=== PATIENT | male | born 1965 | race Two or more races ===

== ENCOUNTER → 2017-12-15 | Outpatient (CLI) | payer BC ==
--- NOTE | 2017-12-15 16:29 | RADIOLOGY REPORT (SQ) ---
EXAM DESCRIPTION: C SP 4 OR 5 VIEWS COMPLETED DATE/TIME: 12/15/2017 4:21 pm REASON FOR STUDY: PARESTHESIA OF SKIN R20.2 PARESTHESIA OF SKIN COMPARISON: None. NUMBER OF VIEWS: Five views. TECHNIQUE: AP, lateral, obliques and odontoid radiographic images acquired of the cervical spine. LIMITATIONS: None. FINDINGS: MINERALIZATION: Normal. ALIGNMENT: Anatomic. VERTEBRAE: Vertebral bodies of normal height. DISCS: No significant osteophytes or sclerosis. Disc height maintained. FORAMINA: No osteophytes or foraminal narrowing. LATERAL AND POSTERIOR ELEMENTS: Facets, lateral masses and spinous processes without significant find ings. HARDWARE: Anterior hardware at C5-C6 and C6-C7. SOFT TISSUES: No masses or calcifications. Lung apices clear. OTHER: No other significant finding. IMPRESSION: SURGICAL CHANGES WITH HARDWARE. OTHERWISE NO SIGNIFICANT RADIOGRAPHIC FINDING IN THE CE RVICAL SPINE. TECHNICAL DOCUMENTATION: JOB ID: [id number] [employer]- All Rights Reserved Reading location - IP/workstation name: [email or web address]
== END ==
LOC: OD 15:55
PROVIDERS: ATTEND Physician Assistant
DX: R20.2 Paresthesia of skin (principal)
CPT/HCPCS: 72050

== ENCOUNTER → 2017-12-19 | Outpatient (CLI) | payer BC ==
--- NOTE | 2017-12-19 10:46 | RADIOLOGY REPORT (SQ) ---
EXAM DESCRIPTION: CT HEAD WITHOUT COMPLETED DATE/TIME: 12/19/2017 7:33 am REASON FOR STUDY: PARESTHESIA OF SKIN (R20.2) R20.2 PARESTHESIA OF SKIN COMPARISON: None. TECHNIQUE: Axial images acquired through the brain without intravenous contrast. Images reviewed wi th bone, brain and subdural windows. Additional sagittal and coronal reconstructions were generated. Images stored on PACS. All CT scanners at this facility use dose modulation, iterative reconstruction, and/or weight based d osing when appropriate to reduce radiation dose to as low as reasonably achievable (ALARA). [facility]: Dose Right [facility]: CareDose [facility]: Dose Right [facility]: Teradose 4D [facility]: [employer] RADIATION DOSE: CT Rad equipment meets quality standard of care and radiation dose reduction techniq ues were employed. CTDIvol: 48.6 mGy. DLP: 904 mGy-cm. mGy. LIMITATIONS: None. FINDINGS: VENTRICLES: Normal size and contour. CEREBRUM: No masses. No hemorrhage. No midline shift. No evidence for acute infarction. Normal gra y/white matter differentiation. No areas of low density in the white matter. CEREBELLUM: No masses. No hemorrhage. No alteration of density. No evidence for acute infarction. EXTRAAXIAL SPACES: No fluid collections. No masses. ORBITS AND GLOBE: No intra- or extraconal masses. Normal contour of globe without masses. CALVARIUM: No fracture. PARANASAL SINUSES: No fluid or mucosal thickening. SOFT TISSUES: No mass or hematoma. OTHER: No other significant finding. IMPRESSION: NORMAL BRAIN CT WITHOUT CONTRAST. EVIDENCE OF ACUTE STROKE: NO. COMMENT: Quality ID # [id number]: Final reports with documentation of one or more dose reduction techniques (e.g., Automated exposure control, adjustment of the mA and/or kV according to patient size, use of iterative reconstruction technique) TECHNICAL DOCUMENTATION: JOB ID: [id number] [employer]- All Rights Reserved Reading location - IP/workstation name: [facility]
== END ==
LOC: RAD 07:19
PROVIDERS: ATTEND Physician Assistant
DX: R20.2 Paresthesia of skin (principal)
CPT/HCPCS: 70450

== ENCOUNTER → 2018-10-23 | Outpatient (CLI) | payer BC ==
--- NOTE | 2018-10-23 16:08 | RADIOLOGY REPORT (SQ) ---
EXAM DESCRIPTION: U/S SCROTUM W/O DOPPLER COMPLETED DATE/TIME: 10/23/2018 3:06 pm REASON FOR STUDY: N50.89 OTHER SPECIFIED DISORDERS OF THE MALE GENITAL ORGANS N50.89 OTHER SPECIFIE D DISORDERS OF THE MALE GENITAL ORGANS COMPARISON: None. TECHNIQUE: Static and realtime epps scale imaging of the scrotum and testes. Selected color Doppler and spectral images recorded to document blood flow. LIMITATIONS: None. FINDINGS: RIGHT: TESTICLE: Normal size, 4.8 x 3.5 x 3 cm in size. Normal echotexture. Normal blood flow. No mass. EPIDIDYMIS: 6 mm cyst at the right epididymal head. HYDROCELE OR VARICOCELE: 7 cm cyst in the right hemiscrotum could represent a large epididymal head cyst. HERNIA OR EXTRA-TESTICULAR MASS: No. OTHER: No other significant finding. LEFT: TESTICLE: Normal size, 4.9 x 3.2 x 2.4 cm. Normal echotexture. Normal blood flow. No mass. EPIDIDYMIS: 6 cm cyst in the left hemiscrotum, could represent a large epididymal head cyst. HYDROCELE OR VARICOCELE: Small left varicocele HERNIA OR EXTRA-TESTICULAR MASS: No. OTHER: No other significant finding. IMPRESSION: No ultrasound evidence of testicular torsion or primary testicular mass. 7 cm cyst in the right hemiscrotum, 6 cm cyst in the left hemiscrotum most likely representing epidid ymal or spermatoceles. TECHNICAL DOCUMENTATION: JOB ID: [id number] [employer]- All Rights Reserved Reading location - IP/workstation name: [email or web address]
== END ==
LOC: RAD 14:00
PROVIDERS: ATTEND Physician Assistant
DX: N50.3 Cyst of epididymis (principal); R35.0 Frequency of micturition
CPT/HCPCS: 76870

== ENCOUNTER 2018-11-07 09:01 | Inpatient (IN) | payer BC ==
--- NOTE | 2018-11-07 09:28 | ER Document Report ---
ED Medical Screen (RME) - General Chief Complaint: Blurred Vision Stated Complaint: DRY MOUTH, LIGHTHEADED, VISION BLURRED Time Seen by Provider: 11/07/18 09:14 Primary Care Provider: TAMERA LUNA PA [Primary Care Provider] - Follow up as needed TRAVEL OUTSIDE OF THE [place] IN LAST 30 DAYS: No - HPI Notes: 11/07/18 09:26 Patient presented to the emergency room complaining of headache and nosebleed after snorting cocaine last night. While I was interviewing him in the emergency he suddenly became unresponsive and started having seizures. Patient complained of shortness of breath but denies chest pain. He also denies any history of trauma or injury. Physical exam does not show an active nose bleeding. Chest is clear to auscultation bilaterally abdomen is soft nontender to palpation. There are no physical signs of injury. - Related Data Allergies/Adverse Reactions: No Known Allergies Allergy (Verified 11/07/18 09:02) Past Medical History - Social History Frequency of alcohol use: Occasional Drug Abuse: Cocaine - Past Medical History Cardiac Medical History: Reports: Hx Hypertension Endocrine Medical History: Reports: Hx Diabetes Mellitus Type 2 - PRE Renal/ Medical History: Denies: Hx Peritoneal Dialysis Physical Exam - Vital signs Vitals: Temp Pulse Resp BP Pulse Ox 97.9 F 112 H 16 147/94 H 100 11/07/18 09:06 11/07/18 09:06 11/07/18 09:06 11/07/18 09:06 11/07/18 09:06 Course - Vital Signs Vital signs: Temp Pulse Resp BP Pulse Ox 97.9 F 112 H 16 147/94 H 100 11/07/18 09:06 11/07/18 09:06 11/07/18 09:06 11/07/18 09:06 11/07/18 09:06 Doctor's Discharge - Discharge Referrals: TAMERA LUNA PA [Primary Care Provider] - Follow up as needed
[2018-11-07] MEDS ORDERED: NORMAL SALINE 1000 ML 1,000 ML IV ONE ×2 (09:41→11:50)
--- NOTE | 2018-11-07 09:47 | RADIOLOGY REPORT (SQ) ---
EXAM DESCRIPTION: CHEST SINGLE VIEW COMPLETED DATE/TIME: 11/07/2018 9:34 am REASON FOR STUDY: SOB COMPARISON: 05/01/2013 EXAM PARAMETERS: NUMBER OF VIEWS: One view. TECHNIQUE: Single frontal radiographic view of the chest acquired. RADIATION DOSE: NA LIMITATIONS: None. FINDINGS: LUNGS AND PLEURA: No opacities, masses or pneumothorax. No pleural effusion. MEDIASTINUM AND HILAR STRUCTURES: No masses. Contour normal. HEART AND VASCULAR STRUCTURES: Heart normal in size. Normal vasculature. BONES: No acute findings. HARDWARE: None in the chest. OTHER: No other significant finding. IMPRESSION: No acute abnormality of the lungs. No focal airspace opacity. TECHNICAL DOCUMENTATION: JOB ID: [id number] [employer]- All Rights Reserved Reading location - IP/workstation name: [email or web address]
--- NOTE | 2018-11-07 09:50 | RADIOLOGY REPORT (SQ) ---
EXAM DESCRIPTION: CT HEAD WITHOUT COMPLETED DATE/TIME: 11/07/2018 9:39 am REASON FOR STUDY: Headache COMPARISON: 12/19/2017 TECHNIQUE: Axial images acquired through the brain without intravenous contrast. Images reviewed wi th bone, brain and subdural windows. Additional sagittal and coronal reconstructions were generated. Images stored on PACS. All CT scanners at this facility use dose modulation, iterative reconstruction, and/or weight based d osing when appropriate to reduce radiation dose to as low as reasonably achievable (ALARA). [facility]: Dose Right [facility]: CareDose [facility]: Dose Right [facility]: Teradose 4D [facility]: [employer] RADIATION DOSE: CT Rad equipment meets quality standard of care and radiation dose reduction techniq ues were employed. CTDIvol: 53.2 mGy. DLP: 1044 mGy-cm. mGy. LIMITATIONS: None. FINDINGS: VENTRICLES: Normal size and contour. CEREBRUM: No masses. No hemorrhage. No midline shift. No evidence for acute infarction. Normal gra y/white matter differentiation. No areas of low density in the white matter. CEREBELLUM: No masses. No hemorrhage. No alteration of density. No evidence for acute infarction. EXTRAAXIAL SPACES: No fluid collections. No masses. ORBITS AND GLOBE: No intra- or extraconal masses. Normal contour of globe without masses. CALVARIUM: No fracture. PARANASAL SINUSES: No fluid or mucosal thickening. SOFT TISSUES: No mass or hematoma. OTHER: No other significant finding. IMPRESSION: No acute intracranial pathology. EVIDENCE OF ACUTE STROKE: NO. COMMENT: Quality ID # [id number]: Final reports with documentation of one or more dose reduction techniques (e.g., Automated exposure control, adjustment of the mA and/or kV according to patient size, use of iterative reconstruction technique) TECHNICAL DOCUMENTATION: JOB ID: [id number] [employer]- All Rights Reserved Reading location - IP/workstation name: [email or web address]
[2018-11-07 10:31] LABS: ABSOLUTE EOSINOPHILS # (AUTO) 0.2 10^3/uL (0.0-0.6); ABSOLUTE LYMPHOCYTES (AUTO) 2.2 10^3/uL (0.5-4.7); ABSOLUTE MONOCYTES (AUTO) 1.1 10^3/uL (0.1-1.4); BASOPHILS % (AUTO) 0.3 % (0-2); EOSINOPHILS % (AUTO) 1.6 % (0-6); HEMATOCRIT 47.3 % (37.9-51.0); HEMOGLOBIN 16.5 g/dL (13.5-17.0); LYMPHOCYTES % (AUTO) 14.8 % (13-45); MEAN CORPUSCULAR HEMOGLOBIN 29.5 pg (27.0-33.4); MEAN CORPUSCULAR HGB CONC 34.8 g/dL (32.0-36.0); MEAN CORPUSCULAR VOLUME 85 fl (80-97); MONOCYTES % (AUTO) 7.8 % (3-13); PLATELET COUNT 292 10^3/uL (150-450); RED BLOOD COUNT 5.58 10^6/uL (4.35-5.55); RED CELL DISTRIBUTION WIDTH 12.7 % (11.5-14.0); SEGMENTED NEUTROPHILS % (AUTO) 75.5 % (42-78); TOTAL CELLS COUNTED % (AUTO) 100 %; WHITE BLOOD COUNT 14.6 10^3/uL (4.0-10.5)
[2018-11-07 10:36] LABS: INTERNATIONAL RATION (INR) 1.09; PROTHROMBIN TIME 14.7 SEC (11.4-15.4)
[2018-11-07 10:54] LABS: ALANINE AMINOTRANSFERASE 147 U/L (21-72); ALBUMIN 5.1 g/dL (3.5-5.0); ALKALINE PHOSPHATASE 98 U/L (38-126); ANION GAP 14 (5-19); ASPARTATE AMINO TRANSFERASE 201 U/L (17-59); BILIRUBIN,DIRECT 0.7 mg/dL (0.0-0.4); BILIRUBIN,TOTAL 1.7 mg/dL (0.2-1.3); BLOOD UREA NITROGEN 24 mg/dL (7-20); CALCIUM 10.7 mg/dL (8.4-10.2); CARBON DIOXIDE 26 mmol/L (22-30); CHLORIDE 102 mmol/L (98-107); GLUCOSE 147 mg/dL (75-110); POTASSIUM 4.1 mmol/L (3.6-5.0); SODIUM 141.6 mmol/L (137-145); TOTAL PROTEIN 8.2 g/dL (6.3-8.2)
[2018-11-07 11:06] LABS: TROPONIN I < 0.012 ng/mL
[2018-11-07 11:15] LABS: CREATINE KINASE 11523 U/L (55-170)
--- NOTE | 2018-11-07 11:55 | ER Document Report ---
ED General - General Chief Complaint: Blurred Vision Stated Complaint: DRY MOUTH, LIGHTHEADED, VISION BLURRED Time Seen by Provider: 11/07/18 09:14 TRAVEL OUTSIDE OF THE [place] IN LAST 30 DAYS: No - HPI Patient complains to provider of: Dry mouth lightheadedness blurry vision Notes: Patient coming in for the above-stated symptoms. Patient also states approximate 2 days prior to arrival did use 2 8 balls an apparent suicide attempt. Patient denies any illicit drug abuse denies any history of suicide attempt in the past. Patient otherwise resting company upon my evaluation. Please see the triage note. Denies fevers chills nausea vomiting diarrhea at this time. Denies any chest pain - Related Data Allergies/Adverse Reactions: No Known Allergies Allergy (Verified 11/07/18 09:02) Past Medical History - Social History Smoking Status: Never Smoker Frequency of alcohol use: Occasional Drug Abuse: Cocaine Family History: Reviewed & Not Pertinent Patient has suicidal ideation: No Patient has homicidal ideation: No - Past Medical History Cardiac Medical History: Reports: Hx Hypertension Endocrine Medical History: Reports: Hx Diabetes Mellitus Type 2 - PRE Renal/ Medical History: Denies: Hx Peritoneal Dialysis Review of Systems - Review of Systems Constitutional: No symptoms reported EENT: No symptoms reported Cardiovascular: No symptoms reported Respiratory: No symptoms reported Gastrointestinal: No symptoms reported Genitourinary: No symptoms reported Male Genitourinary: No symptoms reported Musculoskeletal: No symptoms reported Skin: No symptoms reported Hematologic/Lymphatic: No symptoms reported Neurological/Psychological: Other - Dizziness Physical Exam - Vital signs Vitals: Temp Pulse Resp BP Pulse Ox 97.9 F 112 H 16 147/94 H 100 11/07/18 09:06 11/07/18 09:06 11/07/18 09:06 11/07/18 09:06 11/07/18 09:06 Interpretation: Normal - General General appearance: Appears well, Alert - HEENT Head: Normocephalic, Atraumatic Eyes: Normal Pupils: PERRL - Respiratory Respiratory status: No respiratory distress Chest status: Nontender Breath sounds: Normal Chest palpation: Normal - Cardiovascular Rhythm: Regular Heart sounds: Normal auscultation Murmur: No - Abdominal Inspection: Normal Distension: No distension Bowel sounds: Normal Tenderness: Nontender Organomegaly: No organomegaly - Back Back: Normal, Nontender - Extremities General upper extremity: Normal inspection, Nontender, Normal color, Normal ROM, Normal temperature General lower extremity: Normal inspection, Nontender, Normal color, Normal ROM, Normal temperature, Normal weight bearing. No: Yolande's sign - Neurological Neuro grossly intact: Yes Cognition: Normal Orientation: AAOx4 [place] Coma Scale Eye Opening: Spontaneous [place] Coma Scale Verbal: Oriented [place] Coma Scale Motor: Obeys Commands [place] Coma Scale Total: 15 Speech: Normal Motor strength normal: LUE, RUE, LLE, RLE Sensory: Normal - Psychological Associated symptoms: Normal affect, Normal mood - Skin Skin Temperature: Warm Skin Moisture: Dry Skin Color: Normal Course - Re-evaluation Re-evalutation: 11/07/18 14:41 Laboratory studies show signs of rhabdomyolysis. Patient will be admitted we will place the patient on IVC paperwork - Vital Signs Vital signs: Temp Pulse Resp BP Pulse Ox 97.9 F 112 H 17 128/87 H 96 11/07/18 09:06 11/07/18 09:06 11/07/18 13:01 11/07/18 13:01 11/07/18 13:01 - Laboratory Result Diagrams: 11/07/18 10:17 11/07/18 10:17 Laboratory results interpreted by me: 11/07/18 11/07/18 11/07/18 10:17 10:17 10:17 WBC 14.6 H RBC 5.58 H Absolute Neutrophils 11.0 H BUN 24 H Glucose 147 H Calcium 10.7 H Total Bilirubin 1.7 H Direct Bilirubin 0.7 H AST 201 H ALT 147 H Creatine Kinase 31048 H CK-MB (CK-2) 15.30 H Albumin 5.1 H Critical Care Note - Critical Care Note Total time excluding time spent on procedures (mins): 35 Comments: Multiple evaluation patient with slight hypotension upon arrival finding of rhabdomyolysis. Discharge - Discharge Clinical Impression: Dehydration, Suicide ideation, States cocaine use Rhabdomyolysis Qualifiers: Rhabdomyolysis type: non-traumatic Qualified Code(s): M62.82 - Rhabdomyolysis Condition: Good Disposition: ADMITTED OBSERVATION Admitting Provider: Aragon Unit Admitted: Telemetry
[2018-11-07] MEDS ORDERED: ACETAMINOPHEN 325 MG TABLET PO PRN (12:40)
[2018-11-07] MEDS ORDERED: NORMAL SALINE 1000 ML 1,000 ML IV PRN (12:40)
--- NOTE | 2018-11-07 13:12 | EKG REPORT ---
SEVERITY:- ABNORMAL ECG - SINUS RHYTHM LEFT ANTERIOR FASCICULAR BLOCK NONSPECIFIC ST-T CHANGES- INFERIOR LEADS : Confirmed by: Milton Wade MD 07-Nov-2018 13:11:55
--- NOTE | 2018-11-07 13:57 | PDOC H&P ---
History of Present Illness Admission Date/PCP: 11/07/18 12:41 Patient complains of: Headache/blurry vision/dry mouth History of Present Illness: ALFREDO MARRERO is a 53 year old male 53-year-old male with a history of the hypertension's hyperlipidemia history of the sleep apnea not using the CPAP history of the chronic back problems and neck problems currently see a pain management currently taking the pain medication and also see the neurosurgery also history of the depressions with the issue with his and multiple other comorbidity came to the emergency department by himself with a complaining of a headache blurry visions not feeling well and according to the ER patient went taking to the patient patient had some seizures like activity Patient CT of the head is negative Patient also found the CPK level is more than 11,000 Patient started using the cocaine and have a nosebleed and the patient's noticed that he depressed and he usually one time Patient also claimed that he cut down his alcohol Patient currently denied any chest pain denied any shortness of the breath Patients denied any headache anymore Patient's in the room Patient is denied any suicidal ideations denied any homicidal ideation at this point Past Medical History Cardiac Medical History: Reports: Hypertension Endocrine Medical History: Reports: Diabetes Mellitus Type 2 - PRE GI Medical History: Reports: Gastroesophageal Reflux Disease Musculoskeltal Medical History: Reports: Arthritis Psychiatric Medical History: Reports: Alcohol Dependency, Depression, General Anxiety Disorder, Substance Abuse Social History Smoking Status: Never Smoker Family History Family History: Reviewed & Not Pertinent Parental Family History Reviewed: Yes Children Family History Reviewed: Yes Sibling(s) Family History Reviewed.: Yes Medication/Allergy Home Medications: Losartan Potassium [Cozaar 100 mg Tablet] 100 mg PO DAILY 11/07/18 Oxycodone HCl/Acetaminophen [Percocet 10-325 Mg Tablet] 1 each PO TID 11/07/18 Allergies/Adverse Reactions: No Known Allergies Allergy (Verified 11/07/18 09:02) Review of Systems Constitutional: PRESENT: fatigue, weakness. ABSENT: chills, fever(s), headache(s), weight gain, weight loss Eyes: ABSENT: visual disturbances Ears: ABSENT: hearing changes Nose, Mouth, and Throat: PRESENT: headache(s) Cardiovascular: ABSENT: chest pain, dyspnea on exertion, edema, orthropnea, palpitations Respiratory: ABSENT: cough, hemoptysis Gastrointestinal: ABSENT: abdominal pain, constipation, diarrhea, hematemesis, hematochezia, nausea, vomiting Genitourinary: ABSENT: dysuria, hematuria Musculoskeletal: ABSENT: joint swelling Integumentary: ABSENT: rash, wounds Neurological: ABSENT: abnormal gait, abnormal speech, confusion, dizziness, focal weakness, syncope Psychiatric: PRESENT: anxiety, depression, suicidal ideation. ABSENT: homidical ideation Endocrine: ABSENT: cold intolerance, heat intolerance, menstrual abnormalities, polydipsia, polyuria Hematologic/Lymphatic: ABSENT: easy bleeding, easy bruising, lymphadenopathy Physical Exam Vital Signs: Temp Pulse Resp BP Pulse Ox 97.9 F 112 H 17 128/87 H 96 11/07/18 09:06 11/07/18 09:06 11/07/18 13:01 11/07/18 13:01 11/07/18 13:01 Intake & Output 11/06/18 11/07/18 11/08/18 06:59 06:59 06:59 Intake Total 1000 Balance 1000 Weight 99.8 kg General appearance: PRESENT: no acute distress, well-developed, well-nourished Head exam: PRESENT: atraumatic, normocephalic Eye exam: PRESENT: conjunctiva pink, EOMI, PERRLA. ABSENT: scleral icterus Ear exam: PRESENT: normal external ear exam Mouth exam: PRESENT: moist, tongue midline Neck exam: PRESENT: full ROM. ABSENT: carotid bruit, JVD, lymphadenopathy, thyromegaly Respiratory exam: PRESENT: clear to auscultation sugar Cardiovascular exam: PRESENT: RRR. ABSENT: diastolic murmur, rubs, systolic m urmur Vascular exam: PRESENT: normal capillary refill GI/Abdominal exam: PRESENT: normal bowel sounds, soft. ABSENT: distended, guarding, mass, organolmegaly, rebound, tenderness Rectal exam: PRESENT: deferred Extremities exam: ABSENT: pedal edema Neurological exam: PRESENT: alert, awake, oriented to person, oriented to place, oriented to time, oriented to situation, CN II-XII grossly intact. ABSENT: motor sensory deficit Psychiatric exam: PRESENT: appropriate affect, normal mood. ABSENT: homicidal ideation, suicidal ideation Skin exam: PRESENT: dry, intact, warm. ABSENT: cyanosis, rash Results Laboratory Results: 11/07/18 10:17 11/07/18 10:17 11/07/18 11/07/18 11/07/18 10:17 10:17 10:17 WBC 14.6 H RBC 5.58 H Hgb 16.5 Hct 47.3 MCV 85 MCH 29.5 MCHC 34.8 RDW 12.7 Plt Count 292 Seg Neutrophils % 75.5 Lymphocytes % 14.8 Monocytes % 7.8 Eosinophils % 1.6 Basophils % 0.3 Absolute Neutrophils 11.0 H Absolute Lymphocytes 2.2 Absolute Monocytes 1.1 Absolute Eosinophils 0.2 Absolute Basophils 0.0 Sodium 141.6 Potassium 4.1 Chloride 102 Carbon Dioxide 26 Anion Gap 14 BUN 24 H Creatinine 1.23 Est GFR ( Amer) > 60 Est GFR (Non-Af Amer) > 60 Glucose 147 H Calcium 10.7 H Total Bilirubin 1.7 H AST 201 H ALT 147 H Alkaline Phosphatase 98 Total Protein 8.2 Albumin 5.1 H Lipase 87.0 11/07/18 11/07/18 10:17 10:17 Creatine Kinase 67817 H CK-MB (CK-2) 15.30 H Troponin I < 0.012 Impressions: Chest X-Ray 11/07/18 09:20 IMPRESSION: No acute abnormality of the lungs. No focal airspace opacity. Head CT 11/07/18 09:21 IMPRESSION: No acute intracranial pathology. EVIDENCE OF ACUTE STROKE: NO. Assessment & Plan - Diagnosis (1) Rhabdomyolysis Qualifiers: Rhabdomyolysis type: non-traumatic Qualified Code(s): M62.82 - Rhabdomyolysis Is this a current diagnosis for this admission?: Yes Plan: Most likely recent substance abuse related Start the patient on IV fluid Stop the Lipitor (2) Headache Qualifiers: Headache chronicity pattern: unspecified pattern Is this a current diagnosis for this admission?: Yes Plan: Patient CT head is all negative With the current cocaine abuse we will get the MRI and MRA of the head to rule out the other etiology (3) Seizure-like activity Plan: Not clear etiology Not a tonic-clonic type of seizures May be underlying substance abuse We will get the EEG Consider start the Keppra 500 twice daily (4) Hypertension Qualifiers: Hypertension type: essential hypertension Qualified Code(s): I10 - Essential (primary) hypertension Is this a current diagnosis for this admission?: Yes Plan: Continues to current medications (5) Type 2 diabetes mellitus Qualifiers: Diabetes mellitus penitentiary insulin use: without exterminator helper use Is this a current diagnosis for this admission?: Yes Plan: Patient's recent hemoglobin is 6.4 We will continue sliding scale (6) Cervical radiculopathy Is this a current diagnosis for this admission?: Yes Plan: She is currently follow with the pain management and neurosurgery (7) Chronic pain syndrome Is this a current diagnosis for this admission?: Yes Plan: he does follow with the pain management (8) Substance abuse Is this a current diagnosis for this admission?: Yes Plan: Consult the psych (9) Depression Qualifiers: Depression Type: major depressive disorder Is this a current diagnosis for this admission?: Yes Plan: Consult the psych (10) Hyperlipidemia Qualifiers: Hyperlipidemia type: unspecified Qualified Code(s): E78.5 - Hyperlipidemia, unspecified Is this a current diagnosis for this admission?: Yes Plan: Currently hold the Lipitor due to the rhabdomyolysis (11) Alcoholism Is this a current diagnosis for this admission?: Yes Plan: Check the alcohol level (12) Dehydration Is this a current diagnosis for this admission?: Yes Plan: IV fluid (13) Suicide ideation Is this a current diagnosis for this admission?: Yes Plan: Consult the psych (14) Sleep apnea Qualifiers: Sleep apnea type: unspecified type Qualified Code(s): G47.30 - Sleep apnea, unspecified Is this a current diagnosis for this admission?: Yes Plan: Patient unable to afford the CPAP Discussed with the patient and the took him to the sleep center - Time Time Spent: 50 to 70 Minutes Medications reviewed and adjusted accordingly: Yes - Inpatient Certification Based on my medical assessment, after consideration of the patient's comorbidities, presenting symptoms, or acuity I expect that the services needed warrant INPATIENT care.: Yes I certify that my determination is in accordance with my understanding of Medicare's requirements for reasonable and necessary INPATIENT services [42 CFR 412.3e].: Yes Medical Necessity: Significant Comorbidiites Make Outpatient Treatment Too Risky, Need For IV Fluids 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
[2018-11-07] MEDS ORDERED: GLUCAGON,HUMAN RECOMB 1 MG INJ IM PRN (14:00)
[2018-11-07] MEDS ORDERED: DEXTROSE 40% GEL 15 GM TUBE PO PRN ×2 (14:00)
[2018-11-07] MEDS ORDERED: (PENDING PHARMACY ID) (Oxycodone Hcl/Acetaminophen [Percocet 10-325 Mg Tablet] 1 EACH) PO SCH (14:00)
[2018-11-07] MEDS ORDERED: DEXTROSE 50%-WATER 25 GM/50 ML DISP.SYRIN IV PRN ×2 (14:00)
[2018-11-07] MEDS ORDERED: ENOXAPARIN SODIUM INJ 30 MG/0.3 ML DISP.SYRIN SUBCUT SCH (14:00)
[2018-11-07 14:24] LABS: TROPONIN I < 0.012 ng/mL
[2018-11-07 14:39] LABS: APPEARANCE,URINE CLEAR; BILIRUBIN,URINE NEGATIVE (NEGATIVE); COLOR,URINE YELLOW; GLUCOSE, URINE NEGATIVE (NEGATIVE); KETONES,URINE NEGATIVE (NEGATIVE); LEUKOCYTE ESTERASE,URINE NEGATIVE (NEGATIVE); NITRITE,URINE NEGATIVE (NEGATIVE); PROTEIN,URINE 30 mg/dL (NEGATIVE); URINE SPECIFIC GRAVITY 1.015; UROBILINOGEN,URINE NEGATIVE mg/dL (<2.0)
[2018-11-07] MEDS ORDERED: THIAMINE HCL 100 MG TABLET PO ONE (14:45)
--- NOTE | 2018-11-07 14:53 | RADIOLOGY REPORT (SQ) ---
EXAM DESCRIPTION: MRA HEAD WITHOUT COMPLETED DATE/TIME: 11/07/2018 2:43 pm REASON FOR STUDY: Slurred speech/ COMPARISON: None. TECHNIQUE: Axial 3-D [id number] acquisition imaging performed through the brain in the area of t he [place]. Images reformatted using 3-D MIPS. LIMITATIONS: None. FINDINGS: SOURCE IMAGES: No unexpected findings on source images. No large masses. 3-D MIP: No aneurysm. No occlusions. No significant stenosis. OTHER: No other significant finding. IMPRESSION: NORMAL MRA OF THE [place]. TECHNICAL DOCUMENTATION: JOB ID: [id number] [employer]- All Rights Reserved Reading location - IP/workstation name: [email or web address]
[2018-11-07 14:59] LABS: URINE AMPHETAMINES SCREEN NEGATIVE; URINE BARBITURATES SCREEN NEGATIVE; URINE BENZODIAZEPINES SCREEN NEGATIVE; URINE COCAINE SCREEN UNCONFIRMED POSITIVE; URINE MARIJUANA (THC) SCREEN NEGATIVE; URINE METHADONE SCREEN NEGATIVE; URINE PHENCYCLIDINE SCREEN NEGATIVE
--- NOTE | 2018-11-07 15:00 | RADIOLOGY REPORT (SQ) ---
EXAM DESCRIPTION: MRI HEAD COMBO COMPLETED DATE/TIME: 11/07/2018 2:43 pm REASON FOR STUDY: Ams/slurred speech COMPARISON: CT 11/07/2018 TECHNIQUE: Multiplanar imaging includes noncontrasted T1, T2, FLAIR, diffusion with ADC map and post gadolinium contrast T1 sequences. Images stored on PACS. CONTRAST TYPE AND DOSE: 20 mL Dotarem. RENAL FUNCTION: Creatinine 1.23 GFR greater than 60 LIMITATIONS: None. FINDINGS: ANATOMY: No anomalies. Normal vascular flow voids. Pituitary fossa normal. CSF SPACES: Normal in size and contour. No hemorrhage. CEREBRUM: Sulci and gyri normal in size and contour. Normal white matter signal on FLAIR imaging. No evidence of hemorrhage, mass, or extraaxial fluid collection. No abnormal enhancement post contrast. POSTERIOR FOSSA: No signal alteration. No hemorrhage. No edema, masses, or mass effect. Internal long tory canals, cerebellopontine angles, mastoids normal. No enhancing lesions. No abnormal enhancement post contrast. DIFFUSION IMAGING: Negative for acute or subacute infarction. ORBITS: No masses. Globes normal. PARANASAL SINUSES: There is mucoperiosteal thickening in the maxillary sinuses. OTHER: No other significant finding. IMPRESSION: Maxillary sinus disease. No acute intracranial imaging findings. EVIDENCE OF ACUTE STROKE: NO. TECHNICAL DOCUMENTATION: JOB ID: [id number] [employer]- All Rights Reserved Reading location - IP/workstation name: [email or web address]
[2018-11-07] MEDS ORDERED: CEPHALEXIN 500 MG CAPSULE PO SCH (16:00)
[2018-11-07] MEDS: OXYCODONE-ACETAMINOPHEN 5-325 MG TABLET PO SCH ×2 (16:43→21:29)
[2018-11-07] MEDS: OXYCODONE HCL IR 5 MG TABLET PO SCH ×2 (16:43→21:29)
--- NOTE | 2018-11-07 17:27 | PSYCHOLOGICAL NOTE ---
Psych Note - Psych Note Date seen by psych provider: 11/07/18 Time seen by psych provider: 11:15 Psych Note: Reason for consult:SI, OD Contact Permissions: , Karine at bedside Patient is a 53 yo male presenting to the ED for concerns of SI and OD on cocaine. Chart review shows no prior psych visits or substance abuse visits. He reports that he was extremely angry and did want to harm himself then explains that in the moment "I just got started using and then didn't care". He says he doesn't want to harm himself now and thinks that he's gotten it out of his system and insists that this is his first ever drug use. Patient admits to drinking beer daily after work up until recently when he learned he has pre- diabetes and a prostate issue. Patient stopped drinking in order to manage his blood sugar. He then says, "I thought well, if I'm going to anyway, I should just go ahead and do it". "He relays the trigger as fighting with his daily over financial concerns and goes on to explain those and argue with his about them. Patient denies SI, HI, and AV/H, denies family MH hx, denies prior suicide attempts, drug use or NSSI. He lives with his and three children. He perseverates on not wanting to lose his job/having to work 50+ hours per week to make ends meet while his works PT. Karine discloses that "I did not know the pressure was building up like this/I didn't know he was feeling as strong as he is/I guess I'll have to get some more hours to alleviate some stress. She says this resentfully. Both decline interest in marriage counseling. Patient is alert and oriented x 4. Mood is anxious with congruent affect. Patient denies SI, HI, and AV/H, does not appear to be responding to internal stimuli, and no delusions were noted. Conversational speech was slurred. Eye contact was intermittently maintained. Thought processes were linear, organized, and rational. Intellectual abilities were estimated within the average range. Attention/concentration was WNL while, insight, judgment, and impulse control were impaired. Diagnosis: 311 (F32.9) Unspecified Depressive Disorder 304.20 (F14.20) Cocaine Use Disorder Medication recommendations as per psychiatric provider, Dr. Holliday are as follows: No medication recommendations at this time Impression/Plan: Patient is recommended for IVC due to risk of harm to self aeb patient reported that he OD on 2 eight balls of cocaine intentionally to end his life then later recanted. Patient is a 53 yo male with a hx of depression who is experiencing significant financial stressors that are causing a strain on his marriage and his emotional stability. Patient is planned for admit today for medical allowing for further observation and evaluation. Consulted Dr. Perez in the care and treatment of this patient and ED physician who is in agreement with disposition and recommendation.
[2018-11-07] MEDS: INSULIN LISPRO 100 UNIT/ML 3 ML VIAL SUBCUT SCH ×2 (17:56→23:06)
[2018-11-07] MEDS: LANSOPRAZOLE 15 MG TAB.RAP.DR PO SCH (18:08)
[2018-11-07] MEDS: CEFTRIAXONE 1 GM/D5W RTU 1 GM/50 ML RTUPB IV SCH (18:15)
[2018-11-07] MEDS: DOCUSATE SODIUM 100 MG CAPSULE PO SCH (18:21)
[2018-11-07 20:09] LABS: CREATINE KINASE MB 8.26 ng/mL (<4.55)
[2018-11-07 20:17] LABS: TROPONIN I < 0.012 ng/mL
[2018-11-08 01:40] LABS: CREATINE KINASE MB 5.72 ng/mL (<4.55)
[2018-11-08 01:44] LABS: TROPONIN I < 0.012 ng/mL
[2018-11-08 05:43] LABS: ABSOLUTE EOSINOPHILS # (AUTO) 0.3 10^3/uL (0.0-0.6); ABSOLUTE LYMPHOCYTES (AUTO) 2.9 10^3/uL (0.5-4.7); ABSOLUTE MONOCYTES (AUTO) 0.8 10^3/uL (0.1-1.4); ABSOLUTE NEUT (AUTO) 5.4 10^3/uL (1.7-8.2); BASOPHILS % (AUTO) 0.4 % (0-2); EOSINOPHILS % (AUTO) 3.4 % (0-6); HEMATOCRIT 39.8 % (37.9-51.0); LYMPHOCYTES % (AUTO) 30.3 % (13-45); MEAN CORPUSCULAR HEMOGLOBIN 29.5 pg (27.0-33.4); MEAN CORPUSCULAR HGB CONC 34.5 g/dL (32.0-36.0); MEAN CORPUSCULAR VOLUME 86 fl (80-97); MONOCYTES % (AUTO) 8.7 % (3-13); PLATELET COUNT 213 10^3/uL (150-450); RED BLOOD COUNT 4.66 10^6/uL (4.35-5.55); RED CELL DISTRIBUTION WIDTH 12.9 % (11.5-14.0); SEGMENTED NEUTROPHILS % (AUTO) 57.2 % (42-78); TOTAL CELLS COUNTED % (AUTO) 100 %; WHITE BLOOD COUNT 9.5 10^3/uL (4.0-10.5)
[2018-11-08 05:45] LABS: HEMOGLOBIN 13.7 g/dL (13.5-17.0)
[2018-11-08 06:02] LABS: ALANINE AMINOTRANSFERASE 138 U/L (21-72); ALBUMIN 3.6 g/dL (3.5-5.0); ALKALINE PHOSPHATASE 69 U/L (38-126); ANION GAP 9 (5-19); ASPARTATE AMINO TRANSFERASE 109 U/L (17-59); BILIRUBIN,DIRECT 0.2 mg/dL (0.0-0.4); BILIRUBIN,TOTAL 0.7 mg/dL (0.2-1.3); BLOOD UREA NITROGEN 20 mg/dL (7-20); CALCIUM 8.9 mg/dL (8.4-10.2); CARBON DIOXIDE 23 mmol/L (22-30); CHLORIDE 109 mmol/L (98-107); GLUCOSE 103 mg/dL (75-110); LIPASE 242.4 U/L (23-300); POTASSIUM 3.7 mmol/L (3.6-5.0); TOTAL PROTEIN 6.2 g/dL (6.3-8.2)
[2018-11-08] MEDS: OXYCODONE HCL IR 5 MG TABLET PO SCH ×3 (06:06→21:59)
[2018-11-08] MEDS: OXYCODONE-ACETAMINOPHEN 5-325 MG TABLET PO SCH ×3 (06:07→21:58)
[2018-11-08] MEDS: LANSOPRAZOLE 15 MG TAB.RAP.DR PO SCH (06:09)
[2018-11-08] MEDS ORDERED: NORMAL SALINE 1000 ML 1,000 ML IV PRN (07:18)
[2018-11-08] MEDS ORDERED: OXYCODONE HCL IR 5 MG TABLET PO PRN (07:32)
--- NOTE | 2018-11-08 08:22 | RADIOLOGY REPORT (SQ) ---
EXAM DESCRIPTION: U/S ABDOMEN COMPLETE W/O DOP COMPLETED DATE/TIME: 11/08/2018 6:12 am REASON FOR STUDY: abnormal lft COMPARISON: None. TECHNIQUE: Dynamic and static grayscale images acquired of the abdomen and recorded on PACS. Additio nal selected color Doppler and spectral images recorded. Note: Exam does not meet criteria for a complete doppler/duplex scan LIMITATIONS: Study limited due to acoustical interference from fat or from air in the bowel. FINDINGS: PANCREAS: Obscured by bowel gas. LIVER: Echotexture is coarse with increased echogenicity consistent with fatty infiltration. Small 1 .5 cm focal area of fatty sparing adjacent to the gallbladder fossa. LIVER VASCULATURE: Normal directional flow of the main portal vein and hepatic veins. GALLBLADDER: Small amount of sludge. Normal wall thickness. No pericholecystic fluid. ULTRASOUND-DETECTED PACHECO'S SIGN: Negative. INTRAHEPATIC DUCTS AND COMMON DUCT: CBD and intrahepatic ducts normal caliber. No filling defects. INFERIOR VENA CAVA: Normal flow. AORTA: No aneurysm. RIGHT KIDNEY: Normal size. Normal echogenicity. Lobulated contour. No solid or suspicious masses. No hydronephrosis. No calcifications. LEFT KIDNEY: Normal size. Normal echogenicity. Lobulated contour. No solid or suspicious masses. N o hydronephrosis. No calcifications. SPLEEN:Normal size. 1 cm hypoechoic lesion. PERITONEAL AND PLEURAL SPACES: No ascites or effusions. OTHER: No other significant finding. IMPRESSION: 1. SMALL AMOUNT OF GALLBLADDER SLUDGE. 2. FATTY INFILTRATION OF THE LIVER. 3. SMALL HYPOECHOIC LESION IN THE SPLEEN PROBABLY A HEMANGIOMA. 4. NO OTHER SIGNIFICANT FINDING IN THE VISUALIZED ABDOMEN. TECHNICAL DOCUMENTATION: JOB ID: [id number] [employer]- All Rights Reserved Reading location - IP/workstation name: [email or web address]
[2018-11-08] MEDS ORDERED: ESCITALOPRAM OXALATE 10 MG TABLET PO SCH (10:00)
[2018-11-08] MEDS ORDERED: LOSARTAN POTASSIUM 50 MG TABLET PO SCH (10:00)
[2018-11-08] MEDS ORDERED: ENOXAPARIN SODIUM INJ 40 MG/0.4 ML DISP.SYRIN SUBCUT SCH (10:00)
[2018-11-08] MEDS ORDERED: (PENDING PHARMACY ID) (Oxycodone Hcl [Oxycontin] 15 MG) PO SCH (10:00)
[2018-11-08] MEDS: INSULIN LISPRO 100 UNIT/ML 3 ML VIAL SUBCUT SCH ×4 (10:16→22:00)
[2018-11-08] MEDS: DOCUSATE SODIUM 100 MG CAPSULE PO SCH ×2 (11:08→17:43)
[2018-11-08] MEDS: PANTOPRAZOLE SODIUM 20 MG TABLET.DR PO SCH ×2 (11:13→17:37)
[2018-11-08] MEDS: OXYCODONE HCL SR 10 MG TABLET PO SCH ×2 (14:29→21:59)
--- NOTE | 2018-11-08 16:17 | PDOC PROGRESS REPORT ---
Subjective Progress Note for:: 11/08/18 Subjective:: Patient is feeling much better Patients denied any chest pain to than any shortness of the breath Patient is denied any homicidal or suicidal thought process According to the patient he was telling about because his was in the room is otherwise he does not have any feeling like that Patient CPK level is also coming down Reason For Visit: RHABDOMYOLYSIS Physical Exam Vital Signs: Temp Pulse Resp BP Pulse Ox 98.0 F 72 17 151/93 H 97 11/08/18 11:00 11/08/18 14:00 11/08/18 11:00 11/08/18 11:00 11/08/18 11:00 Intake & Output 11/07/18 11/08/18 11/09/18 06:59 06:59 06:59 Intake Total 2250 Balance 2250 Weight 102.1 kg General appearance: PRESENT: no acute distress, well-developed, well-nourished Head exam: PRESENT: atraumatic, normocephalic Eye exam: PRESENT: conjunctiva pink, EOMI, PERRLA. ABSENT: scleral icterus Ear exam: PRESENT: normal external ear exam Mouth exam: PRESENT: moist, tongue midline Neck exam: PRESENT: full ROM. ABSENT: carotid bruit, JVD, lymphadenopathy, thyromegaly Respiratory exam: PRESENT: clear to auscultation sugar Cardiovascular exam: PRESENT: RRR. ABSENT: diastolic murmur, rubs, systolic murmur Vascular exam: PRESENT: normal capillary refill GI/Abdominal exam: PRESENT: normal bowel sounds, soft. ABSENT: distended, guarding, mass, organolmegaly, rebound, tenderness Rectal exam: PRESENT: deferred Neurological exam: PRESENT: alert, awake, oriented to person, oriented to place, oriented to time, oriented to situation, CN II-XII grossly intact. ABSENT: motor sensory deficit Psychiatric exam: PRESENT: appropriate affect, normal mood. ABSENT: homicidal ideation, suicidal ideation Skin exam: PRESENT: dry, intact, warm. ABSENT: cyanosis, rash Results Laboratory Results: 11/08/18 04:27 11/08/18 04:27 11/08/18 11/08/18 04:27 04:27 WBC 9.5 RBC 4.66 Hgb 13.7 D Hct 39.8 MCV 86 MCH 29.5 MCHC 34.5 RDW 12.9 Plt Count 213 Seg Neutrophils % 57.2 Lymphocytes % 30.3 Monocytes % 8.7 Eosinophils % 3.4 Basophils % 0.4 Absolute Neutrophils 5.4 Absolute Lymphocytes 2.9 Absolute Monocytes 0.8 Absolute Eosinophils 0.3 Absolute Basophils 0.0 Sodium 141.0 Potassium 3.7 Chloride 109 H Carbon Dioxide 23 Anion Gap 9 BUN 20 Creatinine 0.94 Est GFR ( Amer) > 60 Est GFR (Non-Af Amer) > 60 Glucose 103 Calcium 8.9 Magnesium 2.3 Total Bilirubin 0.7 AST 109 H ALT 138 H Alkaline Phosphatase 69 Total Protein 6.2 L Albumin 3.6 Lipase 242.4 11/07/18 11/07/18 11/07/18 10:17 10:17 13:26 Creatine Kinase 09585 H 7577 H CK-MB (CK-2) 15.30 H Troponin I < 0.012 11/07/18 11/07/18 11/07/18 13:26 19:15 19:23 Creatine Kinase 6165 H CK-MB (CK-2) 11.30 H 8.26 H Troponin I < 0.012 < 0.012 11/08/18 11/08/18 00:58 00:58 Creatine Kinase 3761 H CK-MB (CK-2) 5.72 H Troponin I < 0.012 Impressions: Brain MRI with MRA 11/07/18 00:00 IMPRESSION: NORMAL MRA OF THE [place]. Head MRI 11/07/18 00:00 IMPRESSION: Maxillary sinus disease. No acute intracranial imaging findings. EVIDENCE OF ACUTE STROKE: NO. Chest X-Ray 11/07/18 09:20 IMPRESSION: No acute abnormality of the lungs. No focal airspace opacity. Head CT 11/07/18 09:21 IMPRESSION: No acute intracranial pathology. EVIDENCE OF ACUTE STROKE: NO. Abdomen Ultrasound 11/08/18 00:00 IMPRESSION: 1. SMALL AMOUNT OF GALLBLADDER SLUDGE. 2. FATTY INFILTRATION OF THE LIVER. 3. SMALL HYPOECHOIC LESION IN THE SPLEEN PROBABLY A HEMANGIOMA. 4. NO OTHER SIGNIFICANT FINDING IN THE VISUALIZED ABDOMEN. Assessment & Plan - Diagnosis (1) Rhabdomyolysis Qualifiers: Rhabdomyolysis type: non-traumatic Qualified Code(s): M62.82 - Rhabdomyolysis Is this a current diagnosis for this admission?: Yes Plan: All improving We will stop the tricyclic antidepressants . The Lipitor (2) Headache Qualifiers: Headache chronicity pattern: unspecified pattern Is this a current diagnosis for this admission?: Yes Plan: Currently all resolved (3) Seizure-like activity Is this a current diagnosis for this admission?: Yes Plan: No seizures like activities since the hospital admissions (4) Hypertension Qualifiers: Hypertension type: essential hypertension Qualified Code(s): I10 - Essential (primary) hypertension Is this a current diagnosis for this admission?: Yes Plan: Continues to current medications (5) Type 2 diabetes mellitus Qualifiers: Diabetes mellitus senior care insulin use: without emt intermediate use Is this a current diagnosis for this admission?: Yes Plan: Patient's recent hemoglobin is 6.4 We will continue sliding scale (6) Cervical radiculopathy Is this a current diagnosis for this admission?: Yes Plan: She is currently follow with the pain management and neurosurgery (7) Chronic pain syndrome Is this a current diagnosis for this admission?: Yes Plan: he does follow with the pain management (8) Substance abuse Is this a current diagnosis for this admission?: Yes Plan: Consult the psych (9) Depression Qualifiers: Depression Type: major depressive disorder Is this a current diagnosis for this admission?: Yes Plan: Consult the psych (10) Hyperlipidemia Qualifiers: Hyperlipidemia type: unspecified Qualified Code(s): E78.5 - Hyperlipidemia, unspecified Is this a current diagnosis for this admission?: Yes Plan: Currently hold the Lipitor due to the rhabdomyolysis (11) Alcoholism Is this a current diagnosis for this admission?: Yes Plan: Check the alcohol level (12) Dehydration Is this a current diagnosis for this admission?: Yes (13) Suicide ideation Is this a current diagnosis for this admission?: Yes Plan: Patient is currently denied any symptoms (14) Sleep apnea Qualifiers: Sleep apnea type: unspecified type Qualified Code(s): G47.30 - Sleep apnea, unspecified Is this a current diagnosis for this admission?: Yes Plan: Patient unable to afford the CPAP Discussed with the patient and the took him to the sleep center - Time Time Spent with patient: 15-24 minutes Medications reviewed and adjusted accordingly: Yes Anticipated discharge: Other Within: Other - Plan Summary Plan Summary: Patient is currently doing well at the physical therapy evaluations reduce the IV fluid
--- NOTE | 2018-11-08 16:57 | PSYCHOLOGICAL NOTE ---
Psych Note - Psych Note Date seen by psych provider: 11/08/18 Time seen by psych provider: 13:05 Psych Note: Reason for consult:SI, OD Contact Permissions: Karine No medication recommendations at this time Diagnosis: Unspecified Depressive Disorder Cocaine Use Disorder Impression/Plan: Patient is recommended for IVC to lapse and is cleared from acute psychiatric services. Patient no longer meets IVC criteria [place] GS 122C. Patient discloses accidental overdose after marital discord. Patient states that his and he has talked through and has come to the decision that the patient's will moved out of their home. Patient denies thoughts of wanting to harm himself and demonstrates forward thinking in regards to needing to go back to work so he can make money to pay bills. Patient is highly encouraged to follow through with outpatient substance abuse treatment evaluation to determine appropriate course of treatment and receive therapeutic service through outpatient mental health provider. Dr. Perez was consulted in the care management of this patient.
[2018-11-08] MEDS: CEFTRIAXONE 1 GM/D5W RTU 1 GM/50 ML RTUPB IV SCH (17:36)
[2018-11-08] MEDS ORDERED: AMITRIPTYLINE HCL 50 MG TABLET PO SCH (22:00)
[2018-11-08] MEDS ORDERED: TAMSULOSIN HCL 0.4 MG CAP.SR.24H PO SCH (22:00)
[2018-11-09 06:15] LABS: ABSOLUTE EOSINOPHILS # (AUTO) 0.3 10^3/uL (0.0-0.6); ABSOLUTE LYMPHOCYTES (AUTO) 2.9 10^3/uL (0.5-4.7); ABSOLUTE MONOCYTES (AUTO) 0.5 10^3/uL (0.1-1.4); ABSOLUTE NEUT (AUTO) 3.5 10^3/uL (1.7-8.2); BASOPHILS % (AUTO) 0.4 % (0-2); EOSINOPHILS % (AUTO) 4.1 % (0-6); HEMATOCRIT 39.6 % (37.9-51.0); HEMOGLOBIN 13.8 g/dL (13.5-17.0); MEAN CORPUSCULAR HEMOGLOBIN 29.6 pg (27.0-33.4); MEAN CORPUSCULAR VOLUME 85 fl (80-97); MONOCYTES % (AUTO) 6.9 % (3-13); PLATELET COUNT 268 10^3/uL (150-450); RED BLOOD COUNT 4.67 10^6/uL (4.35-5.55); RED CELL DISTRIBUTION WIDTH 12.5 % (11.5-14.0); SEGMENTED NEUTROPHILS % (AUTO) 48.6 % (42-78); TOTAL CELLS COUNTED % (AUTO) 100 %; WHITE BLOOD COUNT 7.3 10^3/uL (4.0-10.5)
[2018-11-09] MEDS: OXYCODONE HCL SR 10 MG TABLET PO SCH (06:17)
[2018-11-09] MEDS: OXYCODONE HCL IR 5 MG TABLET PO SCH (06:18)
[2018-11-09] MEDS: OXYCODONE-ACETAMINOPHEN 5-325 MG TABLET PO SCH (06:18)
[2018-11-09] MEDS: PANTOPRAZOLE SODIUM 20 MG TABLET.DR PO SCH (06:18)
[2018-11-09 06:35] LABS: ALANINE AMINOTRANSFERASE 136 U/L (21-72); ALBUMIN 3.7 g/dL (3.5-5.0); ALKALINE PHOSPHATASE 73 U/L (38-126); ANION GAP 10 (5-19); ASPARTATE AMINO TRANSFERASE 69 U/L (17-59); BILIRUBIN,DIRECT 0.2 mg/dL (0.0-0.4); BILIRUBIN,TOTAL 0.7 mg/dL (0.2-1.3); BLOOD UREA NITROGEN 19 mg/dL (7-20); CALCIUM 9.1 mg/dL (8.4-10.2); CARBON DIOXIDE 26 mmol/L (22-30); CHLORIDE 107 mmol/L (98-107); CREATINE KINASE 710 U/L (55-170); GLUCOSE 92 mg/dL (75-110); POTASSIUM 3.7 mmol/L (3.6-5.0); SODIUM 142.6 mmol/L (137-145); TOTAL PROTEIN 6.3 g/dL (6.3-8.2)
--- NOTE | 2018-11-09 08:20 | EEG PRO FEE REPORT ---
EEG INTERPRETATION PATIENT NAME: ALFREDO MARRERO ROOM#: [id number] ORDER#: [id number] DATE OF STUDY: 11/08/2018 : 1965 REFERRING MD: DOUG ARAGON M.D. MEDICATIONS: Tylenol, Colace, Lovenox, Oxycodone, Percocet, Humalog insulin, Prevacid, Ceftriaxone History This is a 53 year old right handed man admitted with Rhabdomyolysis, with a history of hypertension, GERD, arthritis, type II diabetes, depression. This EEG was requested for seizure like activity. EEG Interpretation This EEG was recorded in the awake, drowsy, and sleep states. There was diffuse muscle artifact during the awake period, significantly impairing interpretation. The awake EEG was poorly visualized but characterized by an organized background without a definite posterior dominant rhythm. A briefly noted, poorly formed posterior rhythm of 9 Hz was noted. Drowsiness is characterized by slowing of the background rhythms. Vertex waves and sleep spindles were seen in the midline regions. Sleep was impaired by snoring episodes with arousal. Photic stimulation resulted in minimal poorly noted driving. There were no epileptiform abnormalities. The EKG showed a regular rhythm. EEG Impression This EEG is within normal limits for age. However there was artifact that impaired interpretation. There were also several snoring episodes during sleep resulting in arousal. Further investigation of sleep may be considered if clinically indicated. These findings were discussed with the referring physician, Dr. Aragon on the phone on 11/08/18. INTERPRETING PHYSICIAN: HILARY AREVALO M.D. /: MTEFFT TT: [id number] ID: [id number] /: [id number] TD: [id number] JOB: [id number] cc:Jolanta ROBERTS M.D. > MTDD
[2018-11-09 11:54] VITALS: BP 126/67
--- NOTE | 2018-11-09 14:02 | PDOC DISCHARGE SUMMARY ---
General - Admit/Disc Date/PCP Admission Date/Primary Care Provider: 11/07/18 12:41 Discharge Date: 11/09/18 - Discharge Diagnosis (1) Rhabdomyolysis Is this a current diagnosis for this admission?: Yes Summary: Currently all resolved (2) Headache Is this a current diagnosis for this admission?: Yes Summary: Currently all resolved (3) Seizure-like activity Is this a current diagnosis for this admission?: Yes Summary: Patient's EEG is negative for any medications and no seizures activity not sure what the ER noticed (4) Hypertension Is this a current diagnosis for this admission?: Yes Summary: Currently all stable (5) Type 2 diabetes mellitus Is this a current diagnosis for this admission?: Yes Summary: Continues to current medications (6) Cervical radiculopathy Is this a current diagnosis for this admission?: Yes Summary: Follow with the pain management (7) Chronic pain syndrome Is this a current diagnosis for this admission?: Yes Summary: Patients follow with the pain management (8) Substance abuse Is this a current diagnosis for this admission?: Yes Summary: Patient's needs to follow with the outpatient psych psych evaluations done and no need for inpatient IVC at this point and no recommendation for any medications (9) Depression Is this a current diagnosis for this admission?: Yes Summary: Astrid all stable follow outpatients psych (10) Hyperlipidemia Is this a current diagnosis for this admission?: Yes Summary: Currently hold the Lipitor due to the rhabdomyolysis (11) Alcoholism Is this a current diagnosis for this admission?: Yes (12) Dehydration Is this a current diagnosis for this admission?: Yes Summary: Currently all resolved (13) Suicide ideation Is this a current diagnosis for this admission?: Yes Summary: Patient is denied any symptoms right now and patient is clear from the psych (14) Sleep apnea Is this a current diagnosis for this admission?: Yes Summary: Patients definitely needs to use a CPAP but patient unable to afford it - Additional Information Resuscitation Status: Full Code Discharge Diet: As Tolerated, Cardiac Discharge Activity: Activity As Tolerated Prescriptions: Cefdinir [Omnicef 300 mg Capsule] 1 cap PO BID #14 capsule Home Medications: Escitalopram Oxalate [Lexapro 10 mg Tablet] 10 mg PO DAILY 11/07/18 Losartan Potassium [Cozaar 100 mg Tablet] 100 mg PO DAILY 11/07/18 Oxycodone HCl [Oxycodone HCl 10 MG Tablet] 10 mg PO Q12HP PRN 11/07/18 Oxycodone HCl [Oxycontin] 15 mg PO Q12 11/07/18 Tamsulosin HCl [Flomax 0.4 mg Cap.sr] 0.4 mg PO QHS 11/07/18 Cefdinir [Omnicef 300 mg Capsule] 1 cap PO BID #14 capsule 11/09/18 History of Present Illness History of Present Illness: ALFREDO MARRERO is a 53 year old male 53-year-old male with a history of the hypertension's hyperlipidemia history of the sleep apnea not using the CPAP history of the chronic back problems and neck problems currently see a pain management currently taking the pain medication and also see the neurosurgery also history of the depressions with the issue with his and multiple other comorbidity came to the emergency department by himself with a complaining of a headache blurry visions not feeling well and according to the ER patient went taking to the patient patient had some seizures like activity Patient CT of the head is negative Patient also found the CPK level is more than 11,000 Patient started using the cocaine and have a nosebleed and the patient's noticed that he depressed and he usually one time Patient also claimed that he cut down his alcohol Patient currently denied any chest pain denied any shortness of the breath Patients denied any headache anymore Patient's in the room Patient is denied any suicidal ideations denied any homicidal ideation at this point Hospital Course Hospital Course: This is a 53-year-old male's with the recently ongoing issue with his tried to use the cocaine for suicidal tendency came to the emergency departments with the headaches muscles weakness and patient's diagnosed with a rhabdomyolysis Patient was given start IV fluid Patient underwent for the MRI and MRA was all negative Patient also diagnosed with some maxillary sinus disease treated with the antibiotic Patient seen by the psychiatrist and pretty much patient is clear and no need for any further inpatient Patient is otherwise doing well Patient is denied any chest pain to than any shortness of the breath According to the patient he tried that because he tried to scare his so his cannot stay with him but otherwise he does not have a no intentions to harm somebody or intents to harm himself Patient is back to the baseline's wants to go back and start working Discussed with the patient's to currently hold the amitriptyline and hold the Lipitor and drink plenty of water Follow 1 week in office Physical Exam Vital Signs: Temp Pulse Resp BP Pulse Ox 98.2 F 72 20 126/67 H 93 11/09/18 11:52 11/09/18 11:52 11/09/18 11:52 11/09/18 11:52 11/09/18 11:52 Intake & Output 11/08/18 11/09/18 11/10/18 06:59 06:59 06:59 Intake Total 2250 987 Balance 2250 987 Weight 102.1 kg 101.8 kg General appearance: PRESENT: no acute distress, well-developed, well-nourished Head exam: PRESENT: atraumatic, normocephalic Eye exam: PRESENT: conjunctiva pink, EOMI, PERRLA. ABSENT: scleral icterus Ear exam: PRESENT: normal external ear exam Mouth exam: PRESENT: moist, tongue midline Neck exam: PRESENT: full ROM. ABSENT: carotid bruit, JVD, lymphadenopathy, thyromegaly Respiratory exam: PRESENT: clear to auscultation sugar Cardiovascular exam: PRESENT: RRR. ABSENT: diastolic murmur, rubs, systolic murmur Pulses: PRESENT: normal dorsalis pedis pul, +2 pedal pulses bilateral Vascular exam: PRESENT: normal capillary refill GI/Abdominal exam: PRESENT: normal bowel sounds, soft. ABSENT: distended, guarding, mass, organolmegaly, rebound, tenderness Rectal exam: PRESENT: deferred Extremities exam: ABSENT: pedal edema Musculoskeletal exam: PRESENT: ambulatory Neurological exam: PRESENT: alert, awake, oriented to person, oriented to place, oriented to time, oriented to situation, CN II-XII grossly intact. ABSENT: motor sensory deficit Psychiatric exam: PRESENT: appropriate affect, normal mood. ABSENT: homicidal ideation, suicidal ideation Skin exam: PRESENT: dry, intact, warm. ABSENT: cyanosis, rash Results Laboratory Results: 11/09/18 04:49 11/09/18 04:49 11/09/18 11/09/18 04:49 04:49 WBC 7.3 RBC 4.67 Hgb 13.8 Hct 39.6 MCV 85 MCH 29.6 MCHC 35.0 RDW 12.5 Plt Count 268 Seg Neutrophils % 48.6 Lymphocytes % 40.0 Monocytes % 6.9 Eosinophils % 4.1 Basophils % 0.4 Absolute Neutrophils 3.5 Absolute Lymphocytes 2.9 Absolute Monocytes 0.5 Absolute Eosinophils 0.3 Absolute Basophils 0.0 Sodium 142.6 Potassium 3.7 Chloride 107 Carbon Dioxide 26 Anion Gap 10 BUN 19 Creatinine 0.91 Est GFR ( Amer) > 60 Est GFR (Non-Af Amer) > 60 Glucose 92 Calcium 9.1 Magnesium 2.2 Total Bilirubin 0.7 AST 69 H ALT 136 H Alkaline Phosphatase 73 Total Protein 6.3 Albumin 3.7 11/07/18 14:13 Clean Catch Midstream Urine Culture - Final NO GROWTH 2 DAYS 11/07/18 11/07/18 11/07/18 10:17 10:17 13:26 Creatine Kinase 72611 H 7577 H CK-MB (CK-2) 15.30 H Troponin I < 0.012 11/07/18 11/07/18 11/07/18 13:26 19:15 19:23 Creatine Kinase 6165 H CK-MB (CK-2) 11.30 H 8.26 H Troponin I < 0.012 < 0.012 11/08/18 11/08/18 11/09/18 00:58 00:58 04:49 Creatine Kinase 3761 H 710 H CK-MB (CK-2) 5.72 H Troponin I < 0.012 Impressions: Brain MRI with MRA 11/07/18 00:00 IMPRESSION: NORMAL MRA OF THE [place]. Head MRI 11/07/18 00:00 IMPRESSION: Maxillary sinus disease. No acute intracranial imaging findings. EVIDENCE OF ACUTE STROKE: NO. Chest X-Ray 11/07/18 09:20 IMPRESSION: No acute abnormality of the lungs. No focal airspace opacity. Head CT 11/07/18 09:21 IMPRESSION: No acute intracranial pathology. EVIDENCE OF ACUTE STROKE: NO. Abdomen Ultrasound 11/08/18 00:00 IMPRESSION: 1. SMALL AMOUNT OF GALLBLADDER SLUDGE. 2. FATTY INFILTRATION OF THE LIVER. 3. SMALL HYPOECHOIC LESION IN THE SPLEEN PROBABLY A HEMANGIOMA. 4. NO OTHER SIGNIFICANT FINDING IN THE VISUALIZED ABDOMEN. Qualifiers - * PATIENT BEING DISCHARGED WITH ANY OF THE FOLLOWING DIAGNOSIS: No VTE patient discharged on overlapping Therapy?: Yes Plan Time Spent: Greater than 30 Minutes - Patient is currently doing well Clear from the psychiatrist No behavior issue at this point Medically all stable P.o. intake is good Follow an outpatient psych and follow in office 1 week
== END 2018-11-09 12:14 | disposition left against medical advice (07) | DRG 558 ==
LOC: ER 09:01 → EH 12:12 → OBSVTOIN 12:41 → 5 15:56
PROVIDERS: ADMIT Family Medicine; ATTEND Family Medicine
DX: M62.82 Rhabdomyolysis (principal); R45.851 Suicidal ideations; E87.2 Acidosis; I10 Essential (primary) hypertension; E11.9 Type 2 diabetes mellitus without complications; G40.909 Epilepsy, unspecified, not intractable, without status epilepticus; G89.4 Chronic pain syndrome; E86.0 Dehydration; M19.90 Unspecified osteoarthritis, unspecified site; F41.1 Generalized anxiety disorder; K21.9 Gastro-esophageal reflux disease without esophagitis; M54.12 Radiculopathy, cervical region; F32.9 Major depressive disorder, single episode, unspecified; F10.20 Alcohol dependence, uncomplicated; G47.30 Sleep apnea, unspecified; E78.5 Hyperlipidemia, unspecified; F14.10 Cocaine abuse, uncomplicated
CPT/HCPCS: 36415; 70450; 70544; 70553; 71045; 76700; 80048; 80053; 80076; 80307; 81001; 82550; 82553; 82962; 83690; 83735; 84484; 85025; 85610; 87040; 87086; 93005; 93010; 95819; 96360; 96361; 99291; A9576; J0696; J1650; J3490; J7030

== ENCOUNTER → 2019-06-05 | Outpatient (CLI) | payer BC ==
--- NOTE | 2019-06-05 19:37 | RADIOLOGY REPORT (SQ) ---
EXAM DESCRIPTION: U/S SCROTUM W/O DOPPLER COMPLETED DATE/TIME: 06/05/2019 6:37 pm REASON FOR STUDY: L72.9 FOLLICULAR CYST OF THE SKIN AND SUBCUTANEOUS TISSUE, UNSP L72.9 FOLLICULAR CYST OF THE SKIN AND SUBCUTANEOUS TISSUE, U COMPARISON: 10/23/2018 TECHNIQUE: Static and realtime epps scale imaging of the scrotum and testes. Selected color Doppler and spectral images recorded to document blood flow. LIMITATIONS: None. FINDINGS: RIGHT: TESTICLE: Normal size, 4.8 x 2.6 x 2.5 cm. . Normal echotexture. Normal blood flow. No mass. EPIDIDYMIS: Normal, 11 mm. HYDROCELE OR VARICOCELE: No. HERNIA OR EXTRA-TESTICULAR MASS: No. OTHER: There is a 6.9 by 6.9 x 5.6 cm cyst in the right side of the scrotum. LEFT: TESTICLE: Normal size, 4.3 x 2.7 x 2.5 cm. Normal echotexture. Normal blood flow. No mass. EPIDIDYMIS: Normal, 11 mm. HYDROCELE OR VARICOCELE: No. HERNIA OR EXTRA-TESTICULAR MASS: No. OTHER: There is a 5.9 x 2.2 x 2.5 cm cyst in the left side of the scrotum. IMPRESSION: There are 2 cystic lesions in the scrotum as described. Etiology is uncertain. TECHNICAL DOCUMENTATION: JOB ID: [id number]- All Rights Reserved Reading location - IP/workstation name: [email or web address]
== END ==
LOC: RAD 17:21
PROVIDERS: ATTEND Family Medicine
DX: L72.9 Follicular cyst of the skin and subcutaneous tissue, unspecified (principal)
CPT/HCPCS: 76870

== ENCOUNTER → 2020-01-31 | Outpatient (CLI) | payer SELFPAY ==
--- NOTE | 2020-01-31 09:36 | ER RDC ASSESSMENT REPORT ---
Intake - In the Last 14 days Have you traveled outside [place]?: No Have you been in close contact with someone CONFIRMED: No Worked in Healthcare?: No - Symptoms Subjective Fever([place] feverish): Yes Chills: Yes Muscule Aches: Yes Runny Nose: Yes Sore Throat: Yes Cough (New or worsening chronic cough): Yes Shortness of breath: Yes Nausea or Vomiting: Yes --How many day(s)?: Complains of nausea no vomiting Headache: Yes Abdominal Pain: Yes Diarrhea(3 or more loose stools in last 24 hours): No - Do you have any of the following Chronic lung disease: Asthma or emphysema or COPD: No Cystic Fibrosis: No Diabetes: No High Blood Pressure: Yes Cardiovascular Disease: Yes Chronic Kidney Disease: No Chronic Liver Disease: No Chronic blood disorder like Sickle Cell Disease: No Weak immune system due to disease or medication: No Neurologic condition that limits movement: No Developmental delay - Moderate to Severe: No Recent (within past 2 weeks) or current : No Morbid Obesity (>100 pounds over ideal weight): No Other Comment: Height 6 feet 0 inches weight 208 pounds - Objective Temperature: 99.5 F Pulse Rate: 89 Respiratory Rate: 20 Blood Pressure: 119/74 O2 Sat by Pulse Oximetry: 93 Objective: Given above, testing performed: If Testing Performed: Test Specimen Type Sent to General - General Information source: Patient Notes: Patient here at [facility] for COVID testing. Patient reports started feeling ill about 2 weeks ago states feels worse at night with more difficulty breathing chest hurts denies minimal cough but is starting to cough phlegm clear states has sweats at night and feels very fatigued. Reports family sick at home not sure if it is what they have or versus allergies complaints throat scratchy. 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 He has followed up with PCP Dr. Aragon recommended for him to be tested for COVID. - Related Data Allergies/Adverse Reactions: No Known Allergies Allergy (Verified 11/07/18 09:02) Past Medical History - Social History Smoking Status: Former Smoker - quit 20 years ago Family History: Reviewed & Not Pertinent - Past Medical History Cardiac Medical History: Reports: Hx Hypertension Endocrine Medical History: Reports: Hx Diabetes Mellitus Type 2 - PRE Renal/ Medical History: Denies: Hx Peritoneal Dialysis GI Medical History: Reports: Hx Gastroesophageal Reflux Disease Musculoskeletal Medical History: Reports Hx Arthritis Psychiatric Medical History: Reports: Hx Depression Physical Exam - General General appearance: Appears well, Alert In distress: None Notes: PHYSICAL EXAMINATION: GENERAL: Well-appearing and in no acute distress. HEAD: Atraumatic, normocephalic. EYES: sclera anicteric, conjunctiva are normal. ENT: nares patent. Moist mucous membranes. NECK: Normal range of motion, supple without lymphadenopathy LUNGS: CTAB and equal. No wheezes rales or rhonchi. resp even and unlabored. Lung sounds clear. HEART: Regular rate and rhythm without murmurs ABDOMEN: Soft, nontender, normal bowel sounds, no guarding. EXTREMITIES: No cyanosis. NEUROLOGICAL: Normal speech. PSYCH: Normal mood, normal affect. SKIN: Warm, Dry, normal turgor, Diagnostic Results Laboratory Results: Patient informed of negative rapid strep and negative rapid flu results. pending strep culture pending COVID testing results. Patient provided instructions regarding COVID to include: As a person under investigation for Covid 19, the [place] department of Health and Human Services, division of public health advises you to adhere to the following guidance until your test results are reported to you. If your test result is positive, you will receive additional information from your provider and your local health department at that time. Remain at home until you are cleared by the health provider or public health authorities. Keep a log of visitors to your home, notify any visitors to your home of your isolation status. If you plan to move to a new address or leave the [facility], notify the local health department in your County. Call your doctor or seek care if you have an urgent medical need. Before seeking medical care, call ahead to get instructions from the provider before arriving at the medical office clinic or hospital. Notify them that you are being tested for the virus that causes Covid 19 so that arrangements can be made, as necessary, to prevent transmission to others in the healthcare setting. Next, notify the local health department in your county. If a medical emergency arises and you need to call 911, inform the first responders that you are being tested for the virus that causes Covid 19. Next, notify the local health department in your county. Patient Education/Counseling Counseling/Education: Patient presents with upper respiratory symptoms worrisome for possible Covid 19. Patient does not have emergency worring symptoms such as difficulty breathing, shortness of breath, chest pain, pressure, confusion or cyanosis. Patient appears suitable for discharge. Patient instructed to follow up with PCP, Dr. Aragon. To ED for persistent or worsening symptoms. Patient's vital signs are stable and patient is nontoxic in appearance. Good return precautions have been discussed with patient, patient verbalized understanding and is agreeable with discharge plan of care at this time. RDC Discharge - Discharge Clinical Impression: COVID - 19 SCREENING Condition: Stable Disposition: Home; Selfcare
[2020-01-31 09:57] VITALS: BP 119/74
[2020-01-31 11:13] LABS: A TYPE INFLUENZA AG NEGATIVE (NEGATIVE); B INFLUENZA AG NEGATIVE (NEGATIVE)
== END ==
LOC: RDC 09:02
PROVIDERS: ATTEND Nurse Practitioner Family
DX: Z20.828 Contact with and (suspected) exposure to other viral communicable diseases (principal); R50.9 Fever, unspecified; R07.9 Chest pain, unspecified; R06.02 Shortness of breath; J02.9 Acute pharyngitis, unspecified; M79.10 Myalgia, unspecified site; R09.89 Other specified symptoms and signs involving the circulatory and respiratory systems; R11.0 Nausea; R10.9 Unspecified abdominal pain; I10 Essential (primary) hypertension; K21.9 Gastro-esophageal reflux disease without esophagitis; E11.9 Type 2 diabetes mellitus without complications; R53.83 Other fatigue; Z87.891 Personal history of nicotine dependence
CPT/HCPCS: 36415; 87070; 87880; 87635; 87804; C9803; 99201; 99211

== ENCOUNTER → 2020-01-31 | Outpatient (CLI) | payer SELFPAY ==
[2020-01-31 15:47] LABS: ABSOLUTE LYMPHOCYTES (AUTO) 1.2 10^3/uL (0.5-4.7); ABSOLUTE MONOCYTES (AUTO) 0.8 10^3/uL (0.1-1.4); ABSOLUTE NEUT (AUTO) 3.2 10^3/uL (1.7-8.2); BASOPHILS % (AUTO) 0.2 % (0-2); EOSINOPHILS % (AUTO) 0.8 % (0-6); HEMATOCRIT 44.4 % (37.9-51.0); HEMOGLOBIN 15.4 g/dL (13.5-17.0); LYMPHOCYTES % (AUTO) 23.2 % (13-45); MEAN CORPUSCULAR HEMOGLOBIN 28.7 pg (27.0-33.4); MEAN CORPUSCULAR HGB CONC 34.6 g/dL (32.0-36.0); MEAN CORPUSCULAR VOLUME 83 fl (80-97); MONOCYTES % (AUTO) 14.9 % (3-13); PLATELET COUNT 258 10^3/uL (150-450); RED BLOOD COUNT 5.37 10^6/uL (4.35-5.55); RED CELL DISTRIBUTION WIDTH 12.6 % (11.5-14.0); SEGMENTED NEUTROPHILS % (AUTO) 60.9 % (42-78); TOTAL CELLS COUNTED % (AUTO) 100 %; WHITE BLOOD COUNT 5.3 10^3/uL (4.0-10.5)
[2020-01-31 16:08] LABS: ALBUMIN 4.5 g/dL (3.5-5.0); ALKALINE PHOSPHATASE 90 U/L (38-126); ANION GAP 8 (5-19); ASPARTATE AMINO TRANSFERASE 41 U/L (17-59); BILIRUBIN,DIRECT 0.2 mg/dL (0.0-0.4); BILIRUBIN,TOTAL 0.8 mg/dL (0.2-1.3); BLOOD UREA NITROGEN 14 mg/dL (7-20); CARBON DIOXIDE 28 mmol/L (22-30); CHLORIDE 98 mmol/L (98-107); GLUCOSE 118 mg/dL (75-110); POTASSIUM 4.1 mmol/L (3.6-5.0); TOTAL PROTEIN 7.7 g/dL (6.3-8.2)
[2020-01-31 16:28] LABS: ERYTHROCYTE SEDIMENTATION RATE 45 mm/hr (0-20)
[2020-02-03 10:27] LABS: APPEARANCE,URINE SLIGHTLY-CLOUDY; BILIRUBIN,URINE SMALL (NEGATIVE); COLOR,URINE AMBER; GLUCOSE, URINE NEGATIVE (NEGATIVE); KETONES,URINE NEGATIVE (NEGATIVE); LEUKOCYTE ESTERASE,URINE NEGATIVE (NEGATIVE); NITRITE,URINE NEGATIVE (NEGATIVE); PROTEIN,URINE 30 mg/dL (NEGATIVE); URINE SPECIFIC GRAVITY 1.036
== END ==
LOC: OD 14:47
PROVIDERS: ATTEND Physician Assistant
DX: M79.10 Myalgia, unspecified site (principal)
CPT/HCPCS: 36415; 80053; 81001; 85025; 85652